=== PATIENT | female | born 2000 | race Caucasian/White ===

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

== ENCOUNTER 2018-03-24 11:21 | Emergency (ER) | payer OTHER ==
[~2018-03-24] VITALS: Ht 157.5 cm; Wt 58.3 kg
[2018-03-24] MEDS ORDERED: DEXAMETHASONE 4 MG/ML, 1ML PO ONE (12:00)
[2018-03-24 12:47] LABS: MEAN CORPUSCULAR HEMOGLOBIN 27.6 pg (27.0-34.8); MEAN CORPUSCULAR HGB CONC 33.4 g/dL (32.4-35.8); MEAN CORPUSCULAR VOLUME 82.4 fL (80-100); MEAN PLATELET VOLUME 7.8 fL (7.4-10.4); PLATELET COUNT 383 x10^3/uL (130-400); RED BLOOD COUNT 5.56 x10^6/uL (3.82-5.3); RED CELL DISTRIBUTION WIDTH 15.1 % (9.6-15.2)
[2018-03-24 12:57] LABS: ALBUMIN 3.5 g/dL (3.4-5.0); ANION GAP 9 mmol/L (5-15); CALCIUM 9.8 mg/dL (8.5-10.1); CHLORIDE 102 mmol/L (98-107)
[2018-03-24 13:02] LABS: CREATININE 0.97 mg/dL (0.55-1.02)
[2018-03-24 13:03] LABS: BASOPHILS # (AUTO) 0.01 x10^3/uL (0-0.3); BASOPHILS % (AUTO) 0 % (0-1); EOSINOPHILS % (AUTO) 0 % (1-7); LYMPHOCYTES # (AUTO) 0.69 x10^3/uL (1-6.1); LYMPHOCYTES % (AUTO) 4 % (22-44); MD SCAN; MONOCYTES # (AUTO) 1.48 x10^3/uL (0-1.4); MONOCYTES % (AUTO) 8 % (2-9); NEUTROPHILS # (AUTO) 17.59 x10^3/uL (1.8-8.0); NEUTROPHILS % (AUTO) 89 % (42-75)
[2018-03-24] MEDS ORDERED: DEXAMETHASONE 4 MG/ML, 1ML ONE ×2 (13:39→17:46)
[2018-03-24] MEDS ORDERED: HYDROcodone/APAP 7.5-325MG/15ML UDC PO ONE (14:00)
[2018-03-24] MEDS ORDERED: ONDANSETRON ODT 4 MG PO ONE (14:00)
[2018-03-24] MEDS ORDERED: CEFTRIAXONE PMX 1GM/50ML 50 ML ONE (14:26)
[2018-03-24] MEDS ORDERED: ONDANSETRON ODT 4 MG ONE (14:26)
[2018-03-24] MEDS ORDERED: HYDROcodone/APAP 7.5-325MG/15ML UDC ONE (14:26)
[2018-03-24] MEDS ORDERED: SODIUM CHLORIDE 0.9% 1,000ML IVBOLUS ONE (14:30)
[2018-03-24] MEDS ORDERED: CEFTRIAXONE PMX 1GM/50ML 50 ML IVPB ONE (14:30)
[2018-03-24] MEDS ORDERED: SODIUM CHLORIDE FLUSH 10ML SYR IVF ONE (14:30)
[2018-03-24 15:33] LABS: ALBUMIN 3.4 g/dL (3.4-5.0); BILIRUBIN, DIRECT 0.1 mg/dL (0.1-0.2)
[2018-03-24 15:36] LABS: BILIRUBIN,INDIRECT 0.3 mg/dL (0.0-2.0); BILIRUBIN,TOTAL 0.4 mg/dL (0.2-1.0); TOTAL PROTEIN 9.2 g/dL (6.4-8.2)
[2018-03-24] MEDS ORDERED: DEXAMETHASONE 4 MG/ML, 1ML IVPush ONE ×2 (16:00→17:30)
[2018-03-24] MEDS ORDERED: AMPICILLIN/SULBACTAM 3 GM in SODIUM CHLORIDE 0.9% 100 ML IV ONE (16:00)
[2018-03-24 18:23] VITALS: BP 109/64
== END 2018-03-24 18:25 | disposition home or self-care (01) ==
LOC: ED 13:56
DX: J02.0 Streptococcal pharyngitis (principal)
CPT/HCPCS: 36415; 70491; 80048; 80076; 82040; 84703; 85025; 86308; 87081; 87880; 96365; 96367; 96375; 96376; 99285; J0295; J0696; J1100; J7030; Q0162